=== PATIENT | male | born 2000 | race African-American/Black ===

== ENCOUNTER 2022-10-16 19:22 | Emergency (ER) | payer OTHER ==
[~2022-10-16] VITALS: Ht 172.7 cm; Wt 49.9 kg
[2022-10-16 19:30] VITALS: BP 126/75
--- NOTE | 2022-10-16 20:00 | NUR ---
PATIENT STATED THAT HE IS FEELING BETTER AND STATED THAT HE WAS GOING HOME. PATIENT LWBS.
== END 2022-10-16 20:00 | disposition left against medical advice (07) ==
LOC: MED 19:22
DX: R22.0 Localized swelling, mass and lump, head (principal); Z53.21 Procedure and treatment not carried out due to patient leaving prior to being seen by health care provider